=== PATIENT | male | born 2000 | race African-American/Black ===

== ENCOUNTER 2023-03-30 14:54 | Emergency (ER) | payer MEDICAID, OTHER ==
[~2023-03-30] VITALS: Ht 172.7 cm; Wt 63.1 kg
[2023-03-30 15:04] VITALS: BP 138/60
[2023-03-30] MEDS ORDERED: ACETAMINOPHEN 500 MG TAB PO ONE (17:30)
[2023-03-30] MEDS ORDERED: IBUP600T28 PO (18:21)
== END 2023-03-30 18:38 | disposition home or self-care (01) ==
LOC: ER 14:54
DX: S80.12XA Contusion of left lower leg, initial encounter (principal); X58.XXXA Exposure to other specified factors, initial encounter; Y93.01 Activity, walking, marching and hiking; Y92.89 Other specified places as the place of occurrence of the external cause; Y99.8 Other external cause status
CPT/HCPCS: 73590